=== PATIENT | female | born 1955 | race Caucasian/White ===

== ENCOUNTER → 2018-07-07 23:50 | Outpatient (CLI) | payer OTHER ==
[2015-02-12 09:20] VITALS: BMI 25.7
[~2018-07-07 23:50] MED LIST: ASPIRIN325 MG PO; BACLOFEN10 MG PO; CELEXA20 MG PO; POTASSIUM CHLO20 MEQ PO; PRAVACHOL20 MG PO; ZESTORETIC 20/21 TAB PO
== END | disposition home or self-care (01) ==
LOC: D.MAMMO 07-03 16:00
DX: Z12.31 Encounter for screening mammogram for malignant neoplasm of breast (principal)